=== PATIENT | female | born 1930 | race Two or more races ===

== ENCOUNTER 2017-07-24 21:20 | Inpatient (IN) | payer MEDICARE ==
[~2017-07-24] VITALS: Ht 149.9 cm; Wt 73.5 kg
[2017-07-24 21:58] VITALS: BP 173/78
--- NOTE | 2017-07-24 22:00 | NUR ---
PHOTOGRAPH FINISHER NOTE PT DIRECTLY ADMITTED FROM [facility]. A/O X 3, NO SOB, NO DISTRESS OR DISCOMFORT NOTED. DENIES PAIN. PT HAS SWOLLEN LOWER EXT'S NO PITTING EDEMA. KEPT LOWER EXT'S ELEVATED. PT REFUSED SKIN ASSESSMENT. ON TELE MONITOR SR HR 82. PT HAS PRODUCTIVE COUGH. WAITING FOR ADMITTING ORDERS FROM ORIENTED THE PT TO HER ROOM. SIDE RAILS UP X 3 AND CALL LIGHT WITHIN REACH. CONTINUE TO MONITOR HER.
--- NOTE | 2017-07-24 23:00 | NUR ---
FUR IRONER NOTE DR VICTOR VISITED THE PT AND GAVE ADMITTING ORDERS AND DX WITH CHF EXACERBATION.
[2017-07-24] MEDS ORDERED: ZOLPIDEM TARTRATE 5 MG TABLET PO PRN (23:30)
[2017-07-24] MEDS ORDERED: ENOXAPARIN SODIUM 40 MG/0.4 ML DISP.SYRIN SQ SCH (23:30)
[2017-07-24] MEDS ORDERED: Z GUARD REMEDY 2 OZ OINT TP PRN (23:30)
[2017-07-24] MEDS ORDERED: ACETAMINOPHEN 325 MG TABLET PO PRN (23:30)
[2017-07-24] MEDS ORDERED: ONDANSETRON HCL/PF 4 MG/2 ML VIAL IVP PRN (23:30)
[2017-07-24] MEDS ORDERED: HYDROCODONE/APAP 5/325MG 1 EACH TABLET PO PRN (23:30)
[2017-07-24] MEDS ORDERED: MAG HYDROX/AL HYDROX/SIMETH 30 ML UDC PO PRN (23:30)
[2017-07-24] MEDS ORDERED: MAGNESIUM HYDROXIDE 30 ML UDC PO PRN (23:30)
[2017-07-25] VITALS (7 sets, daily range): BP systolic 132–181; BP diastolic 66–80
--- NOTE | 2017-07-25 00:01 | NUR ---
MEDIA SALES REPRESENTATIVE NOTE PT REFUSED BLOOD DRAWN, STATES "IT IS ALREADY DONE IN [place] AND NO NEED TO REPEAT AGAIN". TRY TO CONVINCE HER BUT NO LUCK.
[2017-07-25] MEDS ORDERED: ENOXAPARIN SODIUM 40 MG/0.4 ML DISP.SYRIN SQ ONE (00:04)
[2017-07-25] MEDS ORDERED: ALBU18HF2 INH (03:41)
[2017-07-25] MEDS ORDERED: LORAZEPAM 1 MG TABLET ONE (04:28)
--- NOTE | 2017-07-25 04:28 | NUR ---
ACID ADJUSTER NOTE PT WOKE UP VERY UPSET, STATES "WHY RIDE ATTENDANT WAKE ME UP AT THIS TIME TO CHECK B/P". BLOOD PRESURE WENT UP. TRIED TO CALM HER DOWN. PT ASKING FOR BREATHING TX ALSO. CALLED DR VICTOR AND RECEIVED NEW ORDER, ORDER NOTED AND CARRIED OUT. ATIVAN 1 MG PO GIVEN.
[2017-07-25] MEDS ORDERED: LORAZEPAM 1 MG TABLET PO PRN (04:30)
--- NOTE | 2017-07-25 04:44 | NUR ---
APNS NOTE PT CALM DOWN. FLUID AND SNACKS PROVIDED. SPENT SOME TIME LISTENING TO THE PT OF HER WORRIES. NO SOB, NO DISTRESS NOTED. DENIES PAIN. CONTINUE TO MONITOR HER.
--- NOTE | 2017-07-25 05:28 | NUR ---
AUTOMATION TEST ENGINEER NOTE PT FALL BACK TO SLEEP, REFUSED MORNING BLOOD DRAWN FOR LAB. STATES "COME BACK LATER". PT IN NO DISTRESS. CALM AND RELAXED.
--- NOTE | 2017-07-25 06:45 | NUR ---
ANIMAL SHELTER CLERK NOTE PT IN BED ASLEEP, NO CHANGE IN CONDITION. NO DISTRESS OR DISCOMFORT NOTED. DENIES PAIN. NO SOB NOTED. ON TELE SR 86. ALL NEEDS ATTENDED. SIDE RAILS UP X 3 AND CALL LIGHT WITHIN REACH. WILL ENDORSE TO DAY SHIFT NURSE FOR CONTINUE TO CARE.
--- NOTE | 2017-07-25 08:00 | NUR ---
DIANA/RN PT IS SLEEPING IN THE BED.ON RA,SAT O2-97%.V/S STABLE ,AFEBRILE.NO PAIN REPORTED AT THIS TIME.PT REFUSED AM LABS AND AGREE TO HAVE IT NOW.LABS NOTIFIED.
[2017-07-25] MEDS: FUROSEMIDE 40 MG/4 ML VIAL IV SCH (08:12)
[2017-07-25] MEDS ORDERED: ALBUTEROL FS 2.5 MG/0.5 ML VIAL.NEB NEB PRN (08:30)
[2017-07-25] MEDS ORDERED: IPRATROPIUM NEB FS 0.5 MG/2.5 ML AMPUL.NEB NEB PRN (08:30)
[2017-07-25 08:39] LABS: BASOPHILS % (AUTO) 0.3 % (0.0-2.0); EOSINOPHILS # (AUTO) 0.3 /CMM (0.0-0.7); EOSINOPHILS % (AUTO) 5.4 % (0.0-6.0); HEMATOCRIT 30 % (33-45); LYMPHOCYTES % (AUTO) 16.1 % (20.0-44.0); MEAN CORPUSCULAR HEMOGLOBIN 30 PG (26.0-33.0); MEAN CORPUSCULAR HGB CONC 33 g/dl (31.0-36.0); MEAN CORPUSCULAR VOLUME 89 fL (82-100); MONOCYTES # (AUTO) 0.6 /CMM (0.1-1.30); MONOCYTES % (AUTO) 9.2 % (2.0-12.0); NEUTROPHILS # (AUTO) 4.3 /CMM (1.8-8.9); PLATELET COUNT (AUTO) 220 /CMM (150-450); RDW COEFFICIENT OF VARIATION 15.4 (11.5-15.0); RED BLOOD CELL COUNT(AUTO) 3.38 MIL/uL (4.0-5.2); WHITE BLOOD COUNT (AUTO) 6.2 K/uL (4.3-11.0)
[2017-07-25 08:59] LABS: ALANINE AMINOTRANSFERASE 22 U/L (12-78); ALKALINE PHOSPHATASE 55 U/L (46-116); ASPARTATE AMINOTRANSFERASE 15 U/L (15-37); B-TYPE NATRIURETIC PEPTIDE 437 PG/ML (0-125); BILIRUBIN,TOTAL 0.2 mg/dL (0.2-1.0); CALCIUM, SERUM 10.1 mg/dL (8.5-10.1); CARBON DIOXIDE 33 mmol/L (21-32); CHLORIDE 106 mmol/L (98-107); CREATININE 0.9 mg/dL (0.6-1.3); GLUCOSE 99 mg/dL (74-106); MAGNESIUM 2.1 mg/dL (1.8-2.4); PHOSPHORUS 2.9 mg/dL (2.5-4.9); POTASSIUM 3.6 mmol/L (3.5-5.1); SODIUM SERUM 143 mmol/L (136-145); TOTAL PROTEIN, SERUM 6.4 g/dL (6.4-8.2); UREA NITROGEN, BLOOD 15 mg/dL (7-18)
--- NOTE | 2017-07-25 09:00 | NUR ---
DIANA/RN PT EATS 100% FROM HER MEAL TRAY.DUE MEDS ARE GIVEN ORDERED.PT IS AMBULATING WITH WALKER.
[2017-07-25 09:14] LABS: CHOLESTEROL 172 mg/dL (<200); HDL CHOLESTEROL 44 mg/dL (40-60); LDL 120 mg/dL (0-99); TRIGLYCERIDES 78 mg/dL (30-150)
[2017-07-25] MEDS ORDERED: ENOXAPARIN SODIUM 40 MG/0.4 ML DISP.SYRIN SQ SCH (10:30)
--- NOTE | 2017-07-25 18:39 | NUR ---
DIANA/RN PT IS AWAKE ,ALERT.USE WALKER.V/S STABLE ,AFEBRILE.NO PAIN REPORTED AT THIS TIME.PT EATS 100% FROM HER MEAL TRAY.FAMILY AT BEDSIDE.
[2017-07-25] MEDS: ALBUTEROL FS 2.5 MG/3 ML VIAL.NEB NEB SCH (19:54)
--- NOTE | 2017-07-25 20:00 | NUR ---
received patient in bed, patient is AAO, son at the bedside attentive to the patient. SBP is 181 at this time, will contact the admitting doctor
[2017-07-25] MEDS ORDERED: hydrALAZINE HCL 25 MG TABLET PO PRN (22:00)
--- NOTE | 2017-07-25 22:00 | NUR ---
spoke with Dr. Granado in regards patient's high BP, orders received. will carry on the order
[2017-07-26] VITALS: BP 133/58
--- NOTE | 2017-07-26 | NUR ---
VSS, afebrile, Hydralazine po given PRN for high BP earlier with good effect. continue to monitor
[2017-07-26] MEDS: ALBUTEROL FS 2.5 MG/3 ML VIAL.NEB NEB SCH ×3 (02:03→13:07)
[2017-07-26 04:00] VITALS: BP 150/63
--- NOTE | 2017-07-26 07:42 | NUR ---
RN NOTES RECEIVED PT A&0X3, ON ROOM AIR NO SOB OR DISTRESS NOTED. RAC18G IV SITE INTACT NO IVF. NO COMPLAINTS OF PAIN. BED LOCKED AND IN LOWEST POSITION, CALL LIGHT WITHIN REACH, SIDE RAILS UPX3, WILL CONT TO [place].
[2017-07-26 08:00] VITALS: BP 114/87
--- NOTE | 2017-07-26 08:38 | NUR ---
RN NOTES PT REFUSING BLOOD DRAW FOR SECOND TIME PER MANAGER ADVERTISING. WILL TRY AGAIN. PT EDUCATION DONE, STILL REFUSING. AM LOVENOX WILL BE HELD UNTIL LABS ARE DONE, PT HAS NO COAGS.
[2017-07-26] MEDS ORDERED: ENOXAPARIN SODIUM 30 MG/0.3 ML DISP.SYRIN SQ SCH (09:00)
[2017-07-26] MEDS: FUROSEMIDE 40 MG/4 ML VIAL IV SCH (09:00)
--- NOTE | 2017-07-26 10:15 | NUR ---
RN NOTES PT REFUSING AM MEDICATION. PER PT SHE DOESN'T NEED THESE MEDICATIONS, EDUCATION DONE, CONTINUES TO REFUSE. DR CRUZ MADE AWARE.
[2017-07-26 12:59] LABS: CALCIUM, SERUM 10.5 mg/dL (8.5-10.1); CARBON DIOXIDE 31 mmol/L (21-32); CHLORIDE 106 mmol/L (98-107); GLUCOSE 147 mg/dL (74-106); MAGNESIUM 2.3 mg/dL (1.8-2.4); PHOSPHORUS 2.8 mg/dL (2.5-4.9); POTASSIUM 3.2 mmol/L (3.5-5.1); SODIUM SERUM 144 mmol/L (136-145); UREA NITROGEN, BLOOD 16 mg/dL (7-18)
[2017-07-26 13:09] LABS: BASOPHILS % (AUTO) 0.1 % (0.0-2.0); EOSINOPHILS # (AUTO) 0.2 /CMM (0.0-0.7); EOSINOPHILS % (AUTO) 2.6 % (0.0-6.0); HEMATOCRIT 34 % (33-45); HEMOGLOBIN 11.3 g/dL (11.5-14.8); LYMPHOCYTES # (AUTO) 0.8 /CMM (0.8-4.8); MEAN CORPUSCULAR HEMOGLOBIN 30 PG (26.0-33.0); MEAN CORPUSCULAR HGB CONC 33 g/dl (31.0-36.0); MEAN CORPUSCULAR VOLUME 89 fL (82-100); MONOCYTES # (AUTO) 0.4 /CMM (0.1-1.30); MONOCYTES % (AUTO) 6.4 % (2.0-12.0); NEUTROPHILS # (AUTO) 5.6 /CMM (1.8-8.9); NEUTROPHILS % (AUTO) 78.9 % (43.0-81.0); PLATELET COUNT (AUTO) 236 /CMM (150-450); RDW COEFFICIENT OF VARIATION 14.5 (11.5-15.0); RED BLOOD CELL COUNT(AUTO) 3.81 MIL/uL (4.0-5.2)
[2017-07-26 13:11] LABS: INR 0.96 (0.87-1.13); TROPONIN I < 0.017 ng/mL (0.00-0.056)
[2017-07-26] MEDS ORDERED: MENTHOL/CETYLPYRD (CEPACOL) 1 LOZ LOZENGE PO PRN (13:30)
[2017-07-26 16:00] VITALS: BP 138/68
--- NOTE | 2017-07-26 17:52 | NUR ---
RN NOTES PT DISCHARGED IN STABLE CONDITION BACK TO [facility] WITH SON DIXIE AT BEDSIDE.
== END 2017-07-26 17:53 | DRG 292 ==
LOC: TELE1 21:20 → MEDSG1 07-25 10:21
DX: I11.0 Hypertensive heart disease with heart failure (principal); E44.1 Mild protein-calorie malnutrition; Z95.2 Presence of prosthetic heart valve; E78.5 Hyperlipidemia, unspecified; K21.9 Gastro-esophageal reflux disease without esophagitis; I50.33 Acute on chronic diastolic (congestive) heart failure; J45.20 Mild intermittent asthma, uncomplicated; J20.8 Acute bronchitis due to other specified organisms; I25.10 Atherosclerotic heart disease of native coronary artery without angina pectoris; Z68.32 Body mass index [BMI] 32.0-32.9, adult
CPT/HCPCS: 36415; 71045-TC; 80048-TC; 80053-TC; 80061-TC; 83735-TC; 83880; 84100-TC; 84484-TC; 85025-TC; 85610-TC; 87040-TC; 87081-TC; 93307-TC; J1650; J1940; Z7610